=== PATIENT | female | born 1995 | race Two or more races ===

== ENCOUNTER 2021-04-16 14:57 | Emergency (ER) | payer OTHER ==
[~2021-04-16] VITALS: Ht 162.6 cm; Wt 73.0 kg
[2021-04-16] MEDS ORDERED: DICLOFENAC POTA50 MG PO (17:28)
== END 2021-04-16 20:01 ==
LOC: ER 14:57
DX: S60.212A Contusion of left wrist, initial encounter (principal); V49.40XA Driver injured in collision with unspecified motor vehicles in traffic accident, initial encounter; Y92.410 Unspecified street and highway as the place of occurrence of the external cause